=== PATIENT | male | born 2005 | race Asian ===

== ENCOUNTER 2025-01-15 12:33 | Emergency (ER) | payer BC ==
[~2025-01-15] VITALS: Ht 157.5 cm; Wt 55.3 kg
[2025-01-15 12:38] VITALS: BP 113/68; TEMP 98.2
[2025-01-15] MEDS ORDERED: SULF1TAB48 PO (12:57)
[2025-01-15] MEDS ORDERED: CEPH-570 PO (12:57)
[2025-01-15 13:05] VITALS: O2SAT 98
== END 2025-01-15 13:06 | disposition home or self-care (01) ==
LOC: ER 12:43
DX: L03.317 Cellulitis of buttock (principal); B95.62 Methicillin resistant Staphylococcus aureus infection as the cause of diseases classified elsewhere